=== PATIENT | female | born 1995 | race Caucasian/White ===

== ENCOUNTER 2018-09-19 16:33 | Emergency (ER) | payer BC ==
--- NOTE | 2018-09-19 17:01 | EDPHY ---
H & P Stated Complaint: laceration left hand/thumb Time Seen by Provider: 09/19/18 16:53 HPI/ROS: HPI: This is a 23-year-old female who presents with Chief Complaint: Left hand/finger laceration Location: Left hand Quality: Laceration Duration: 20 min prior to arrival Signs and Symptoms: + bleeding, no radiation, no numbness, no weakness, no tingling, no incontinence, no decreased range of motion, no swelling, + pain, no fever Timing: Acute Severity: Moderate Context: Patient is doing at [employer], right-hand dominant, presents with accidentally cutting the webspace between the left thumb and left pointer finger 20 min prior to arrival while she is trying to cut spaghetti squash. She reports that she felt immediate, constant, nonradiating pain. She reports that bleeding occurred immediately and she applied direct pressure. She reports that she feels lightheaded from seen the blood. Denies radiation, decreased range of motion, paresthesias, numbness. Reports tetanus is up-to-date. Modifying Factors: Direct pressure Comment: ROS: A comprehensive 10 system review of systems is otherwise negative aside from elements mentioned in the history of present illness. MEDICAL/SURGICAL/SOCIAL HISTORY: Medical history: Generally healthy. Does not take any regular medications. Surgical history: Denies Social history: Student at [employer]. Originally from [place]. CONSTITUTIONAL: Mild distress, young adult white female, friends at bedside, awake and alert, no obvious distress HEENT: Atraumatic and normocephalic. NECK: supple, no midline tenderness. Cardiovascular: Normal S1/S2, regular rate, regular rhythm, without murmur rub or gallop. PULMONARY/CHEST: Symmetrical and nontender. Clear to auscultation bilaterally. Good air movement. No accessory muscle usage. ABDOMEN: Soft, nondistended, nontender. EXTREMITIES: 2/2 pulses, strength 5/5, left hand 4 in vertical incision in the webspace between her left thumb and left index finger. Cut is deep but no active bleeding. DIP/PIP/MCP flexion/extension intact with good light touch sensation. no deformities, no clubbing, no cyanosis or edema. NEUROLOGICAL: no focal neuro deficits. GCS 15. Light touch sensation intact. SKIN: Warm and dry, no erythema. no rash. Good capillary refill. Source: Patient Exam Limitations: No limitations - Personal History LMP (Females 10-55): 1-7 Days Ago Current Tetanus/Diphtheria Vaccine: Yes Current Tetanus Diphtheria and Acellular Pertussis (TDAP): Yes - Medical/Surgical History Hx Asthma: Yes Hx Chronic Respiratory Disease: Yes Hx Diabetes: Yes Hx Cardiac Disease: Yes Hx Renal Disease: Yes Hx Cirrhosis: Yes Hx Alcoholism: Yes Hx HIV/AIDS: Yes Hx Splenectomy or Spleen Trauma: Yes - Social History Smoking Status: Never smoked Constitutional: Initial Vital Signs Temperature (C) 36.8 C 09/19/18 16:45 Heart Rate 95 09/19/18 16:45 Respiratory Rate 18 09/19/18 16:45 Blood Pressure 127/82 H 09/19/18 16:45 O2 Sat (%) 100 09/19/18 16:45 O2 Delivery Mode Room Air Allergies/Adverse Reactions: No Known Allergies Allergy (Unverified 09/19/18 16:48) Home Medications: Medication Instructions Recorded NK [No Known Home Meds] 09/19/18 Medical Decision Making Procedures: Procedure: Laceration repair. Verbal consent was obtained from the patient. The 4 in, deep, complex laceration on the left hand between the left thumb and left index finger web space was anesthetized in the usual fashion using 10 mL of 1% lidocaine without epinephrine. The wound was irrigated, draped and explored to its base with a gloved finger. There were muscle and possible tendon structures involved. The wound was repaired with #14, 4-0 Prolene in a simple interrupted pattern. Good hemostasis was achieved and patient tolerated procedure well. The procedure was performed by myself. Procedure: Splint placement. A volar splint was applied. After application of the splint I returned and re- examined the patient. The splint was adequately immobilizing the joint and distal to the splint the patient's circulation and sensation was intact. ED Course/Re-evaluation: Vital signs reviewed and stable upon arrival. Tetanus is up-to-date. Digital block performed and irrigated copiously Concern for both muscle and tendon injury. This patient was seen under the supervision of my primary supervising physician. I evaluated care for this patient independently. Differential Diagnosis: Differential diagnosis includes but is not limited to foreign body, laceration, nerve injury, tendon injury, nail injury. Departure - Departure Disposition: Home, Routine, Self-Care Clinical Impression: Laceration of left hand with tendon involvement including fingers Qualifiers: Encounter type: initial encounter Qualified Code(s): S61.412A - Laceration without foreign body of left hand, initial encounter Condition: Good Instructions: Care For Your Stitches (ED), Laceration (ED), Finger Laceration ( ED), Tendon Laceration (ED), Tendon Repair (DC) Additional Instructions: Keep the dressing dry and in place until seen by orthopedic/hand. After 48 hours, you may remove the dressing; wash the site daily with mild soap and water; then pat dry. Take Tylenol 650 mg every 4 hours and/or Ibuprofen 600 mg every 8 hours with food as needed for pain. Follow up with Orthopedics in 2-3 days at which time they will evaluate and recommend with you if conservative management versus surgery is indicated. There is the possibility that you injured your tendon or nerve in your hand. Follow-Up: Please follow-up as noted above. Follow-up sooner if your condition worsens or if you develop any new problems. Call as soon as possible for an appointment. Be clear when you call for an appointment that this is an Emergency Department follow-up. Contact the Emergency Department if you have trouble arranging follow-up care. Our referrals are not based on your insurance network. When time allows, contact your insurance carrier to verify the referral physician is in your plan. If not, get a referral for an in-senior network systems engineer. Wound Care Follow-Up: Removal of sutures in [10-14] days. Suture removal is complimentary in uncomplicated cases. Infection or abnormal findings would require reevaluation by the MD. In that case, you may be billed. Referrals: Shubham Marmolejo MD [Medical Doctor] - As per Instructions
[2018-09-19 18:10] VITALS: BP 114/71
== END 2018-09-19 18:08 | disposition home or self-care (01) ==
PROC: 0HQGXZZ Repair Left Hand Skin, External Approach (ICD-10-PCS; principal; 2018-09-19)
DX: S61.412A Laceration without foreign body of left hand, initial encounter (principal); Y93.G1 Activity, food preparation and clean up; W26.9XXA Contact with unspecified sharp object(s), initial encounter